=== PATIENT | female | born 1980 | race Caucasian/White ===

== ENCOUNTER 2021-10-06 23:44 | Emergency (ER) | payer SELFPAY ==
[~2021-10-06] VITALS: Ht 162.6 cm; Wt 74.8 kg
--- NOTE | 2021-10-07 00:17 | NUR ---
BIBSELF C/O TRIP AND FALL AT [employer]. -KO. C/O R KNEE PAIN . PT AWAKE AND ALERTY BREATHING EVEN AND UNLABORED. NO GROSS TRAUMA OR DEFMORITIES NOTED.
[2021-10-07] MEDS ORDERED: IBUPROFEN 600 MG TABLET ONE (01:57)
[2021-10-07] MEDS: IBUPROFEN 600 MG TABLET PO ONE (01:58)
[2021-10-07] MEDS ORDERED: TRAM50TA2 PO (03:29)
[2021-10-07] MEDS ORDERED: IBUP-1955 PO (03:29)
--- NOTE | 2021-10-07 03:47 | NUR ---
Patient discharged to home in stable condition. Written and verbal after care instructions given. Patient verbalizes understanding of instruction.
[2021-10-07 04:11] VITALS: BP 143/73
== END 2021-10-07 04:11 | disposition home or self-care (01) ==
LOC: ER 23:49
DX: S89.81XA Other specified injuries of right lower leg, initial encounter (principal); S79.921A Unspecified injury of right thigh, initial encounter; W01.0XXA Fall on same level from slipping, tripping and stumbling without subsequent striking against object, initial encounter; Y93.89 Activity, other specified; Y92.89 Other specified places as the place of occurrence of the external cause; Y99.8 Other external cause status
CPT/HCPCS: 72170-TC; 73502; 73552; 73564-TC